=== PATIENT | female | born 1980 | race Caucasian/White ===

== ENCOUNTER 2024-06-24 16:58 | Emergency (ER) | payer OTHER, SELFPAY ==
[2024-06-24 17:03] VITALS: BP 145/73; PULSE 87; RESP 16; TEMP 37.1; O2SAT 100; BMI 25.0
--- NOTE | 2024-06-24 17:08 | DI.RAD.S_ITS ---
PROCEDURE: XR ANKLE RT MIN 3V INDICATIONS: injury/ pain TECHNIQUE: 3 views of the ankle were acquired. COMPARISON: [facility], , XR FOOT RT MIN 3V, 06/24/2024, 17:11. FINDINGS: Bones: No fractures or dislocations. Ankle mortise is normally aligned. No suspicious bony lesions. Soft tissues: No tibiotalar joint effusion. Achilles tendon appears normal. IMPRESSION: No visualized acute fracture or dislocation. However, if clinical concern and/or pain persist, short interval imaging followup in 7-10 days is recommended, as occult injury cannot be definitively excluded. Dictated by: Clara Robles M.D. on 06/24/2024 at 17:39 Approved by: Clara Robles M.D. on 06/24/2024 at 17:39
--- NOTE | 2024-06-24 17:12 | DI.RAD.S_ITS ---
PROCEDURE: XR FOOT RT MIN 3V INDICATIONS: fall TECHNIQUE: 3 views of the foot were acquired. COMPARISON: [facility], CR, XR ANKLE RT MIN 3V, 06/24/2024, 17:11. FINDINGS: Bones: No fractures or dislocations. No suspicious bony lesions. Soft tissues: No tibiotalar joint effusion. Achilles tendon appears normal. IMPRESSION: No visualized acute fracture or dislocation. However, if clinical concern and/or pain persist, short interval imaging followup in 7-10 days is recommended, as occult injury cannot be definitively excluded. Dictated by: Clara Robles M.D. on 06/24/2024 at 17:39 Approved by: Clara Robles M.D. on 06/24/2024 at 17:40
--- NOTE | 2024-06-24 17:27 | ED.LOWEXIN ---
HPI - Extremity Injury (Lower) <Aretha Hartley PA-C - Last Filed: 06/24/24 18:11> General Chief Complaint: Extremity Injury, Lower Stated Complaint: fall, hurt ankle Time Seen by Provider: 06/24/24 17:11 History of Present Illness HPI Narrative: 44-year-old female with no reported past medical history presents to the ED status post a mechanical fall sustained just prior to arrival. Patient states that she suffered a mechanical fall, which caused her to twist her ankle and foot. Patient complains of pain, swelling, bruising to the lateral aspect of the right foot and ankle. No numbness, tingling, weakness. Patient did not take any medication for the pain. Patient was unable to bear weight and walk right after the fall. Related Data Allergies Allergy/AdvReac Type Severity Reaction Status Date / Time amoxicillin [From Augmentin] AdvReac Verified 06/24/24 17:08 clavulanic acid AdvReac Verified 06/24/24 17:08 [From Augmentin] Review of Systems <Aretha Hartley PA-C - Last Filed: 06/24/24 18:11> Constitutional Constitutional: Denies chills, Denies fatigue, Denies fever(s), Denies frequent falls, Denies lethargy and Denies weakness Eyes Eyes: Denies change in vision, Denies eye discharge, Denies irritation and Denies loss of vision ENT Ears, Nose, Mouth, and Throat: Denies change in voice, Denies dizziness, Denies neck pain, Denies sore throat and Denies throat swelling Cardiovascular Cardiovascular: Denies chest pain, Denies irregular heart rhythm, Denies lightheadedness, Denies palpitations, Denies dyspnea, Denies dyspnea on exertion and Denies orthopnea Respiratory Respiratory: Denies cough, Denies dyspnea, Denies dyspnea on exertion and Denies wheezing Gastrointestinal Gastrointestinal: Denies abdominal pain, Denies change in bowel habits, Denies diarrhea, Denies nausea and Denies vomiting Musculoskeletal Musculoskeletal: Denies neck pain and Denies numbness Comments: Right foot and ankle pain, swelling Integumentary/Breasts Skin/Breast: Denies pruritus, Denies erythema, Denies rash and Denies wounds Neurologic Neurologic: Denies behavioral changes, Denies confusion, Denies dizziness, Denies frequent falls, Denies loss of vision, Denies numbness and Denies weakness Psychiatric Psychiatric: Denies anxiety, Denies behavioral changes, Denies confusion, Denies depression, Denies homicidal ideation and Denies suicidal ideation Endocrine Endocrine: Denies fatigue, Denies flushing and Denies palpitations Hematologic/Lymphatic Hematologic/Lymphatic: Denies easy bruising Allergic/Immunologic Allergic/Immunologic: Denies urticaria, Denies throat swelling and Denies wheezing Patient History <Aretha Hartley PA-C - Last Filed: 06/24/24 18:11> Social History Smoking Status: Never smoker Smoking Status: Never smoker alcohol intake frequency: other Substance Use Type: does not use Exam <Aretha Hartley PA-C - Last Filed: 06/24/24 18:11> Narrative Exam Narrative: Const General:?cooperative, healthy appearing and comfortable [facility] Head:?normal to inspection Ears:?hearing grossly normal bilaterally Nose:?external nose normal Face and sinus:?normal facial exam and sinuses nontender Mouth:?oral mucosae normal Throat:?posterior oropharynx normal Eyes General:?appearance normal, both eyes and all related structures Neck Neck:?normal visual inspection and no lymphadenopathy noted Resp Effort & Inspection:?normal respiratory effort Auscultation:?clear to auscultation bilaterally Cardio Rate:?regular rate Rhythm:?regular rhythm Musculoskeletal Bruising, swelling, tenderness to palpation noted to the lateral aspect of the right ankle and foot. Neurovascularly intact. Strength and sensation intact. Full range of motion. Neuro General:?patient alert, patient awake and patient oriented x3 Initial Vital Signs Initial Vital Signs: Vital Signs Temperature 98.7 F 06/24/24 17:03 Pulse Rate 87 06/24/24 17:03 Respiratory Rate 16 06/24/24 17:03 Blood Pressure 145/73 H 06/24/24 17:03 Pulse Oximetry 100 06/24/24 17:03 Oxygen Delivery Method Room Air 06/24/24 17:03 <Bettie Carlos DO - Last Filed: 06/24/24 20:22> Initial Vital Signs Initial Vital Signs: Vital Signs Temperature 98.7 F 06/24/24 17:03 Pulse Rate 87 06/24/24 17:03 Respiratory Rate 16 06/24/24 17:03 Blood Pressure 145/73 H 06/24/24 17:03 Pulse Oximetry 100 06/24/24 17:03 Oxygen Delivery Method Room Air 06/24/24 17:03 Course <Aretha Hartley PA-C - Last Filed: 06/24/24 18:11> Orders Ordered: ED Orders 06/24/24 17:08 XR ankle RT min 3V Stat 06/24/24 17:12 XR foot RT min 3V Stat Discontinued Medications Ibuprofen (Ibuprofen 400 Mg Tablet) 800 mg PO NOW ONE Stop: 06/24/24 17:41 Last Admin: 06/24/24 17:50 Dose: 800 mg Documented By: RLS Vital Signs Vital signs: Vital Signs - 8 hr 06/24/24 17:03 Temperature 98.7 F Pulse Rate 87 Respiratory Rate 16 Blood Pressure 145/73 H Pulse Oximetry 100 Oxygen Delivery Method Room Air <Bettie Carlos DO - Last Filed: 06/24/24 20:22> Orders Ordered: ED Orders 06/24/24 17:08 XR ankle RT min 3V Stat 06/24/24 17:12 XR foot RT min 3V Stat Discontinued Medications Ibuprofen (Ibuprofen 400 Mg Tablet) 800 mg PO NOW ONE Stop: 06/24/24 17:41 Last Admin: 06/24/24 17:50 Dose: 800 mg Documented By: RLS Vital Signs Vital signs: Vital Signs - 8 hr 06/24/24 17:03 Temperature 98.7 F Pulse Rate 87 Respiratory Rate 16 Blood Pressure 145/73 H Pulse Oximetry 100 Oxygen Delivery Method Room Air MDM - Extremity Injury (Lower) <Aretha Hartley PA-C - Last Filed: 06/24/24 18:11> MDM Narrative Medical decision making narrative: 44-year-old female with no reported past medical history presents to the ED status post a mechanical fall sustained just prior to arrival. Concern for fracture/dislocation versus musculoskeletal sprain/strain versus other. Will obtain ankle and foot x-rays. Will give ibuprofen for pain. Will reassess. X-rays without acute findings. Patient's symptoms consistent with a musculoskeletal sprain/strain of the ankle and foot. Applied Aashish wrap. Provided crutches. Discussed findings with patient. Recommend Tylenol, ibuprofen for pain control, RICE. Recommend follow-up with PCP. ED return precautions discussed with patient. Patient verbalized understanding. Medical records reviewed: Yes Discharge Plan Departure Patient Disposition: Home Clinical Impression: Ankle sprain and strain Instructions: DI for Ankle Sprain Activity Restrictions/Additional Instructions: You were evaluated in the ED today for a right ankle and foot injury. Your x-rays were normal without fractures or dislocations. It appears your symptoms are due to a musculoskeletal sprain/strain of the ankle and foot. Your ankle has been Aashish wrapped. You are also being provided crutches to get around until you are able to bear weight and walk. You were given ibuprofen in the ED today. You may continue taking Tylenol and ibuprofen at home for pain. You may apply ice for the 1st 24 hours, followed by heat. Keeping your foot elevated above heart level will help with swelling and pain. Please follow-up with your PCP as soon as possible. Return to the ED if you have worsening symptoms, numbness, tingling, weakness. Referrals: Miscellaneous,Doctor, MD [Primary Care Provider] - Stand Alone Forms: Patient Portal/API ED Sign-out <Bettie Carlos DO - Last Filed: 06/24/24 20:22> Cosign ED Attending Narciso Attestation: I was available for consultation.
[2024-06-24] MEDS: IBUPROFEN 400 MG TABLET 800 MG PO (17:50)
== END 2024-06-24 18:30 | disposition home or self-care (01) ==
PROVIDERS: Emergency Provider Student in an Organized Health Care Education/Training Program
DX: S93.401A Sprain of unspecified ligament of right ankle, initial encounter (principal); W18.30XA Fall on same level, unspecified, initial encounter
CPT/HCPCS: 73610; 73630; 99283; 99284

== ENCOUNTER → 2025-02-13 14:09 | Outpatient (CLI) | payer OTHER, SELFPAY ==
--- NOTE | 2025-02-13 | DI.CT.S_ITS ---
PROCEDURE: CT ABDOMEN PELVIS W CON INDICATIONS: hx of prog diffuse abd pain TECHNIQUE: After the administration of intravenous contrast, axial sections acquired from the lung bases to the pubic symphysis. Coronal and sagittal reformats were performed. For radiation dose reduction, the following was used: automated exposure control, adjustment of mA and/or kV according to patient size. COMPARISON: None. FINDINGS: Image quality: Diagnostic. Lower Chest: No significant findings. ABDOMEN: Liver: No solid mass. Gallbladder: No radiopaque gallstones or wall thickening. Biliary ducts: No biliary dilation. Pancreas: No ductal dilation. Spleen: Size is within normal limits. Punctate subcentimeter cyst. Adrenal Glands: No adrenal nodules. Kidneys and Ureters: No hydronephrosis. No solid mass. No complex renal cystic lesion which requires follow up. Stomach and Bowel: Normal colonic caliber, without significant wall thickening. Normal appendix. Peritoneum: No abnormal intraperitoneal fluid. No free air. Ventral Wall: No significant ventral hernia. Abdominal Nodes: No retroperitoneal or mesenteric adenopathy by size criteria. Vessels: Aorta and inferior vena cava are normal in size. PELVIS: Pelvic Organs: Mild asymmetric enlargement of the right fallopian tube (series 2, image 123).. Bladder: No bladder wall thickening, accounting for underdistention. Pelvic Nodes: No enlarged lymph nodes. Miscellaneous: No inguinal hernias are seen. Bones: No aggressive osseous abnormality. IMPRESSION: Mild asymmetric enlargement of the right fallopian tube. Findings may indicate a focal implant of endometriosis. Consider confirmation with pelvic MRI with contrast (gynecologic mass protocol). No findings to explain the patient's epigastric pain. Dictated by: Howie Chapman M.D. on 02/14/2025 at 9:08 Approved by: Howie Chapman M.D. on 02/14/2025 at 9:58
== END ==
PROVIDERS: PCP Student in an Organized Health Care Education/Training Program; Referring Provider Student in an Organized Health Care Education/Training Program; Visit Provider Student in an Organized Health Care Education/Training Program
DX: K29.70 Gastritis, unspecified, without bleeding (principal); N83.8 Other noninflammatory disorders of ovary, fallopian tube and broad ligament
CPT/HCPCS: 74177; Q9967

== ENCOUNTER → 2025-02-20 16:00 | Outpatient (CLI) | payer OTHER, SELFPAY ==
--- NOTE | 2025-02-20 16:02 | DI.MRI.S_ITS ---
PROCEDURE: MR PELVIS WO/W CON INDICATIONS: RT SIDE MASS RT FALLOPIAN ON CT TECHNIQUE: Coronal HASTE, sagittal breath-hold T2 FSE; axial T1 FSE with and without fat saturation through the pelvis. Optional long- and short-axis uterine nonbreath-hold T2 FSE through the uterus. Sagittal or axial dynamic VIBE during administration of contrast. Post-contrast axial or coronal VIBE/2-D FLASH with fat saturation from the iliac crests to the symphysis. Optional diffusion weighted imaging and ADC may be performed. COMPARISON: [facility], CT, CT ABDOMEN PELVIS W CON, 02/13/2025, 15:48. FINDINGS: Image quality: Excellent. Uterus: Uterus is retroverted and normal in size. Endometrium is normal in thickness measuring 2 mm. Junctional zone is normal in thickness at 12 mm or less. No fibroids. Adnexa: Both ovaries are normal in size. A few small ovarian follicles. At the right fallopian tube there is a T2 hypointense nodule measuring 1.4 x 1 cm, (5/8). There is T1 isointense signal and subtle peripheral enhancement. Urinary system: Bladder wall is normal in thickness. Distal ureters are non distended. Urethra appears normal in morphology. Nodes and vessels: No pelvic or inguinal adenopathy by size criteria. Iliac vessels are normal in size. Bowel and peritoneum: No pathologic free pelvic fluid. Inferior colon and small bowel loops are normal in caliber. Soft tissues: No inguinal hernias. No findings of pelvic floor incompetence in the absence of provocation. Bones: Marrow demonstrates normal overall signal. IMPRESSION: 1. Small right fallopian tube T2 hypointense nodule measuring 1.4 cm is most consistent with an endometrioma. 2. No uterine adenomyosis. Endometrium measures 2 mm. 3. No significant ovarian cyst identified. Dictated by: Kiran Garrett M.D. on 02/21/2025 at 8:40 Approved by: Kiran Garrett M.D. on 02/21/2025 at 9:16
== END ==
PROVIDERS: PCP Student in an Organized Health Care Education/Training Program; Referring Provider Student in an Organized Health Care Education/Training Program; Visit Provider Student in an Organized Health Care Education/Training Program
DX: K29.70 Gastritis, unspecified, without bleeding (principal); N83.9 Noninflammatory disorder of ovary, fallopian tube and broad ligament, unspecified
CPT/HCPCS: 72197; A9579

== ENCOUNTER → 2025-07-07 16:33 | Outpatient (CLI) | payer OTHER, SELFPAY | PROVIDERS: PCP Student in an Organized Health Care Education/Training Program; Referring Provider Obstetrics & Gynecology; Visit Provider Obstetrics & Gynecology | DX: N83.8 Other noninflammatory disorders of ovary, fallopian tube and broad ligament (principal) | CPT/HCPCS: 36415; 86304; 86305 ==